=== PATIENT | male | born 1995 | race Hispanic/Latino ===

== ENCOUNTER 2022-11-21 18:25 | Emergency (ER) | payer OTHER, SELFPAY ==
[2022-11-21 18:44] VITALS: BP 127/80; PULSE 77; RESP 18; TEMP 36.8; O2SAT 99; BMI 29.1
--- NOTE | 2022-11-21 19:18 | ED.SKABFB ---
HPI - Skin/Abscess/Foreign Bdy General Chief complaint: Skin/Abscess/Foreign Body Stated complaint: Fishing Hook in Rt Ear Time Seen by Provider: 11/21/22 18:57 Source: patient Mode of arrival: Family Vehicle Limitations: no limitations History of Present Illness HPI narrative: Otherwise healthy 27-year-old male who was out fishing and got the fish hook caught in the lobe of his right ear. The bridgette is still in place. He did not try to remove it. No other injuries from the event. Related Data Allergies Allergy/AdvReac Type Severity Reaction Status Date / Time No Known Drug Allergies Allergy Verified 11/21/22 18:44 Review of Systems ENT Ears, Nose, Mouth, and Throat: Reports system reviewed and no additional complaints, except as documented Integumentary/Breasts Skin/Breast: Reports system reviewed and no additional complaints, except as documented Hematologic/Lymphatic On Anticoagulants: No Patient History Social History Smoking Status: Never smoker Smoking Status: Never smoker alcohol intake frequency: 0-2 drinks per day Substance Use Type: does not use Exam Initial Vital Signs Initial Vital Signs: Vital Signs Temperature 98.2 F 11/21/22 18:44 Pulse Rate 77 11/21/22 18:44 Respiratory Rate 18 11/21/22 18:44 Blood Pressure 127/80 11/21/22 18:44 Pulse Oximetry 99 11/21/22 18:44 Oxygen Delivery Method Room Air 11/21/22 18:44 HENMS HENMS Other: Patient does have a fish hook caught in the lobe of the right ear. No surrounding erythema. Skin Other: Fish hook to right earlobe Course Vital Signs Vital signs: Vital Signs - 8 hr 11/21/22 18:44 Temperature 98.2 F Pulse Rate 77 Respiratory Rate 18 Blood Pressure 127/80 Pulse Oximetry 99 Oxygen Delivery Method Room Air MDM - Skin/Abscess/Foreign Bdy MDM Narrative Medical decision making narrative: I did provide some local anesthesia and the fish hook was removed without incident. There is no indication for oral antibiotics. Will place him on topical antibiotics. He was given return precautions. He expressed understanding and agreement. Discharge Plan Departure Patient Disposition: Home Clinical Impression: Fish hook in ear region Activity Restrictions/Additional Instructions: You can just put topical antibiotic over the area. Return to the emergency department for any new symptoms. You can take Tylenol/ibuprofen for any discomfort. Referrals: ProviderRachna [Primary Care Provider] - Stand Alone Forms: Patient Portal/API
--- NOTE | 2022-11-21 19:19 | PC.NURSE ---
Patient evaluated and discharged by provider prior to nursing assessment.
== END 2022-11-21 19:25 | disposition home or self-care (01) ==
PROVIDERS: Emergency Provider Emergency Medicine
DX: S00.451A Superficial foreign body of right ear, initial encounter (principal); W45.8XXA Other foreign body or object entering through skin, initial encounter
CPT/HCPCS: 99281